=== PATIENT | male | born 1980 | race Caucasian/White ===

== ENCOUNTER → 2016-11-12 | Outpatient (CLI) | payer BC ==
--- NOTE | 2016-11-12 11:04 | XR ---
EXAMINATION TYPE: XR chest 2V DATE OF EXAM: 11/12/2016 10:33 AM COMPARISON: 10/24/2016 HISTORY: Cardiac dysrhythmia FINDINGS: The lungs are clear and there is no pneumothorax, pleural effusion, or focal pneumonia. Heart size mildly prominent. IMPRESSION: 1. No acute process.
[2016-11-12 11:23] LABS: Anion Gap 13 mmol/L; Blood Urea Nitrogen 15 mg/dL (9-20); Calcium 9.7 mg/dL (8.4-10.2); Carbon Dioxide 30 mmol/L (22-30); Chloride 99 mmol/L (98-107); Glucose 96 mg/dL (74-99); Non-African American GFR(MDRD) >60 (>60 ml/min/1.73 sqM); Potassium 5.2 mmol/L (3.5-5.1); Sodium 142 mmol/L (137-145)
[2016-11-12 11:24] LABS: CHCM 34.1; HCT 55.7 % (39.0-53.0); HDW 2.53; HGB 18.5 gm/dL (13.0-17.5); MCH 31.4 pg (25.0-35.0); MCHC 33.3 g/dL (31.0-37.0); MCV 94.2 fL (80.0-100.0); Mean Platelet Volume 7.8; RBC 5.91 m/uL (4.30-5.90); RDW 13.1 % (11.5-15.5); WBC 5.9 k/uL (3.8-10.6)
== END | disposition home or self-care (01) ==
LOC: RADXRMAIN 10:15
PROVIDERS: ATTEND Internal Medicine Interventional Cardiology
DX: I50.9 Heart failure, unspecified (principal); I49.9 Cardiac arrhythmia, unspecified
CPT/HCPCS: 36415; 71020; 80048; 85027

== ENCOUNTER 2016-12-03 05:59 | Day surgery (SDC) | payer BC ==
[2016-11-28 11:17] VITALS: BMI 21.7
[2016-12-03] MEDS ORDERED: SODIUM CHLORIDE 0.9% 1,000 ML IV SCH ×2 (06:15→07:15)
[2016-12-03 06:33] VITALS: TEMP 97.9
[2016-12-03] MEDS ORDERED: IV FLUID CONTINUATION 1,000 ML IV ONE ×2 (06:58→08:15)
[2016-12-03] MEDS ORDERED: PROPOFOL 10 MG/ML 20 ML VIAL IV ONE (07:04)
[2016-12-03] MEDS ORDERED: SODIUM CHLORIDE 0.9% 1,000 ML BAG ONE (07:04)
[2016-12-03 10:10] VITALS: PULSE 60
[2016-12-03 10:28] VITALS: BP 106/64; RESP 20
--- NOTE | 2016-12-03 17:26 | PCN ---
DATE OF PROCEDURE: 12/03/2016 PROCEDURE: Electrical cardioversion. INDICATION: Persistent atrial fibrillation with congestive heart failure. CLINICAL INFORMATION: Arnol Becerra was recently diagnosed to have congestive heart failure with atrial fibrillation. Etiology of his CHF is unclear. Clinical picture looks like that of a nonischemic cardiomyopathy. However, his heart failure was stabilized, rate control was achieved, and he still remained in atrial fibrillation. Therefore he was brought in for the procedure electively. He has been on Eliquis, digoxin, losartan, metoprolol and Aldactone. PROCEDURE NOTE: Under the influence of [id number] intravenous anesthetic agent with the attendance of the anesthesiologist, Dr. Donaldson, a single 200-joule shock was delivered with anterior and posterior patches. Patient converted to sinus rhythm. He remained hemodynamically stable and neurologically intact. This was a successful electrical cardioversion. Results were discussed with the patient and his . He will be discharged at noontime after he has had a meal and has been ambulated. I will see him in the office in about a week. Results were discussed with the patient and his .
--- NOTE | 2016-12-04 10:41 | ECHOF ---
Referral Reason:LVEF MEASUREMENTS -------- HEIGHT: 182.9 cm WEIGHT: 72.6 kg BP: 106/64 RVIDd: 2.7 cm (< 3.3) IVSd: 1.0 cm (0.6 - 1.1) LVIDd: 6.1 cm (3.9 - 5.3) LVPWd: 0.9 cm (0.6 - 1.1) IVSs: 1.0 cm LVIDs: 5.6 cm LVPWs: 1.4 cm LA Diam: 4.0 cm (2.7 - 3.8) LAESV Index (A-L): 43.82 ml/m Ao Diam: 3.1 cm (2.0 - 3.7) AV Cusp: 2.5 cm (1.5 - 2.6) MV EXCURSION: 22.473 mm (> 18.000) MV EF SLOPE: 124 mm/s (70 - 150) EPSS: 1.9 cm FINDINGS -------- Sinus rhythm. This was a technically good study. The left ventricle is mildly dilated. Left ventricular wall thickness is normal. Overall left ventricular systolic function is severely impaired with, an EF between 20 - 25 %. The right ventricle is normal in size and function. LA is severely dilated >40 ml/m2 The right atrium is normal in size. The aortic valve is trileaflet and appears structurally normal. Mild mitral regurgitation is present. Trace tricuspid regurgitation present. Trace/mild (physiologic) pulmonic regurgitation. The aortic root size is normal. Normal inferior vena cava with normal inspiratory collapse consistent with estimated right atrial pressure of 5 mmHg. There is no pericardial effusion. CONCLUSIONS -------- 1. Sinus rhythm. 2. Mild mitral regurgitation is present. 3. Trace tricuspid regurgitation present. 4. Trace/mild (physiologic) pulmonic regurgitation. 5. The aortic root size is normal. 6. Normal inferior vena cava with normal inspiratory collapse consistent with estimated right atrial pressure of 5 mmHg. 7. There is no pericardial effusion. 8. This was a technically good study. 9. The left ventricle is mildly dilated. 10. Left ventricular wall thickness is normal. 11. Overall left ventricular systolic function is severely impaired with, an EF between 20 - 25 %. 12. The right ventricle is normal in size and function. 13. LA is severely dilated >40 ml/m2 14. The right atrium is normal in size. 15. The aortic valve is trileaflet and appears structurally normal. SOFTWARE APPLICATIONS ENGINEER: Gaby Snyder RDCS
== END 2016-12-03 11:34 | disposition home or self-care (01) ==
LOC: CATHCVL 05:59
PROVIDERS: ATTEND Internal Medicine Interventional Cardiology
DX: I48.1 Persistent atrial fibrillation (principal); I42.9 Cardiomyopathy, unspecified; I50.9 Heart failure, unspecified; I10 Essential (primary) hypertension; K21.9 Gastro-esophageal reflux disease without esophagitis; Z79.82 Long term (current) use of aspirin; Z79.899 Other long term (current) drug therapy
CPT/HCPCS: 93306; 93005; 92960; 84443; J2704

== ENCOUNTER 2016-12-16 09:25 | Day surgery (SDC) | payer BC ==
[2016-12-13 08:49] VITALS: BMI 21.7
[~2016-12-16 09:25] MED LIST: ALPRAZolam 0.25 MG TAB PO PRN; ASPIRIN 325 MG TAB PO ONE; SODIUM CHLORIDE 0.9% 1,000 ML in EMPTY BAG 1 BAG IV ONE
[2016-12-16 09:47] VITALS: RESP 18
[2016-12-16 10:06] LABS: Basophils % (A) 1 %; CH 32.6; CHCM 36.1; Eosinophils # (A) 0.1 k/uL (0-0.7); Eosinophils % (A) 3 %; HCT 44.2 % (39.0-53.0); HDW 2.81; HGB 15.3 gm/dL (13.0-17.5); Luc # (Auto) 0.19; Luc % (Auto) 4; Lymphocytes # (A) 1.3 k/uL (1.0-4.8); Lymphocytes % (A) 25 %; MCH 31.4 pg (25.0-35.0); MCHC 34.7 g/dL (31.0-37.0); MCV 90.6 fL (80.0-100.0); Monocytes # (A) 0.3 k/uL (0-1.0); Monocytes % (A) 7 %; Neutrophils # (A) 3.1 k/uL (1.3-7.7); Neutrophils % (A) 61 %; RBC 4.88 m/uL (4.30-5.90); RDW 13.1 % (11.5-15.5); WBC (Perox) 5.23
[2016-12-16] MEDS ORDERED: LIDOCAINE 2% INJ 20 MG/ML (20 ML MDV) ONE (10:21)
[2016-12-16] MEDS ORDERED: SODIUM CHLORIDE 0.9% (PF) 10 ML VIAL ONE (10:23)
[2016-12-16] MEDS ORDERED: VERAPAMIL 2.5 MG/ML 2 ML AMP ONE (10:23)
[2016-12-16] MEDS ORDERED: MIDAZOLAM 2 MG/2 ML VIAL ONE (11:00)
[2016-12-16] MEDS ORDERED: HEPARIN SODIUM 1,000 UNIT/ML VIAL ONE (11:01)
[2016-12-16] MEDS ORDERED: diphenhydrAMINE 50 MG/ML 1 ML VIAL ONE (11:01)
[2016-12-16] MEDS: MIDAZOLAM 2 MG/2 ML VIAL IVP ONE ×2 (11:08→11:11)
[2016-12-16] MEDS ORDERED: diphenhydrAMINE 50 MG/ML 1 ML VIAL IVP ONE (11:08)
[2016-12-16] MEDS ORDERED: LIDOCAINE 2% INJ 20 MG/ML SQ ONE (11:11)
[2016-12-16 11:12] LABS: Anion Gap 10 mmol/L; Blood Urea Nitrogen 13 mg/dL (9-20); Calcium 9.1 mg/dL (8.4-10.2); Carbon Dioxide 29 mmol/L (22-30); Chloride 103 mmol/L (98-107); Glucose 90 mg/dL (74-99); Non-African American GFR(MDRD) >60 (>60 ml/min/1.73 sqM); Potassium 4.1 mmol/L (3.5-5.1); Sodium 142 mmol/L (137-145)
[2016-12-16] MEDS ORDERED: HEPARIN SODIUM 1,000 UNIT/ML VIAL IV ONE (11:18)
[2016-12-16] MEDS: VERAPAMIL SYRINGE (5 MG/10 ML) INTRAARTER ONE ×2 (11:18→11:37)
[2016-12-16] MEDS ORDERED: IODIXANOL 320 MG/ML 100 ML INTRAARTER ONE (11:34)
[2016-12-16] MEDS ORDERED: RX INFO: IV CONTRAST WAS GIVEN 1 EACH MISC MISCELLANE PRN (11:43)
[2016-12-16] MEDS ORDERED: SODIUM CHLORIDE 0.9% 1,000 ML IV SCH (11:45)
[2016-12-16] MEDS ORDERED: HYDROmorphone 1 MG/ML 1 ML SYRINGE IVP STA ×2 (14:00)
[2016-12-16] MEDS ORDERED: HYDROmorphone 1 MG/ML 1 ML SYRINGE ONE (14:01)
[2016-12-16 16:51] VITALS: BP 122/64; PULSE 74; TEMP 97.8
--- NOTE | 2016-12-16 22:40 | CC ---
DATE OF SERVICE: 12/16/2016 PROCEDURE: Left heart catheterization, coronary angiography and left ventriculography. PERFORMED BY: Dr. Amarilys Delgado CLINICAL INFORMATION: Mr. Arnol Becerra is a 36-year-old gentleman with a recent diagnosis of atrial fibrillation and cardiomyopathy of unclear etiology. He was treated with anticoagulation and after he had failure of medications, then he underwent electrical cardioversion. He is now in sinus rhythm. He was advised coronary angiography to rule out any obstructive CAD. PROCEDURE NOTE: Under local anesthesia and strict aseptic precautions, a 6 Sami introducer was placed in the right radial artery. I used a micropuncture technique to gain access. I initially tried an Ultimate 1 catheter but eventually used 3.5 curved left and right Zeenat catheters and performed coronary angiography. A pigtail catheter was used to perform LV gram. The sheath was taken out and TR band applied as per protocol with good saturation in the fingers of the right hand of about 100%. Results were discussed with the patient. He was sent to the room in stable condition. There was no obstructive CAD, a right-dominant system and a global decrease in contractility; ejection fraction of 25%. CARDIAC CATHETERIZATION FINDINGS: Left ventricular end-diastolic pressure was about 14 mmHg, and there was no gradient across the aortic valve. CORONARY ANGIOGRAPHIC FINDINGS LEFT MAIN CORONARY ARTERY: A short, patent, disease-free vessel that bifurcates into LAD and circumflex. LEFT ANTERIOR DESCENDING CORONARY ARTERY: A good-caliber vessel; gives off a large diagonal branch in the mid portion; several small septal branches; runs all the way to the apex and curves over the apex to supply the inferoapical ( ) critical. There is no obstructive CAD involving the LAD system. LEFT POSTERIOR CIRCUMFLEX CORONARY ARTERY: technically a non-dominant vessel; gives off a good-sized obtuse marginal and before that gives a left atrial circumflex and then after the obtuse marginal, the groove branch is free of significant disease and comes off distally as a small posterolateral branch. Circumflex is non-dominant, disease-free system with a good-sized obtuse marginal branch. RIGHT CORONARY ARTERY: Technically a dominant vessel; gives off a high conus branch that distally comes off the PDA branch. PLV is somewhat smaller. There is no significant obstructive disease. Minor irregularities are noted. Dominant RCA has small distal branches. PDA is free of significant disease. PLV is smaller. There is a small conus branch proximally. LEFT VENTRICULOGRAM: This was performed in 30-degree GIRALDO projection and revealed a left ventricle which is dilated with a global decrease in contractility. Estimated ejection fraction of 25% without mitral regurgitation. FINAL IMPRESSION: This patient has non-ischemic cardiomyopathy. LV and diastolic systolic pressure is 14. There is no gradient across the aortic valve. He has a right-dominant system. He has no obstructive coronary artery disease. RECOMMENDATIONS: I am recommending that we continue medical therapy, and hopefully his LV function will improve with time. If not, he will require a single-chamber ICD down the road. I discussed the findings with the patient and his and other family members, and I expect he will be discharged later on today if he remains stable.
--- NOTE | 2016-12-16 22:41 | LTR ---
December 16, 2016 RE: MariamArnol Dear Dr. Weir, Thank you for the opportunity to participate in the care of Mr. Arnol Becerra. This gentleman underwent left heart catheterization today. He has no significant obstructive CAD. His feeling pressures are acceptable. He has a global decrease in contractility with a dilated ventricular ejection fraction of about 25% by visual inspection. For now we will pursue medical therapy, but down the road he may require ICD if his LV function does not improve. Thank you for your referral. Please call with questions. Sincerely, JACINTO COLÓN MD
--- NOTE | 2016-12-17 09:36 | ECHOF ---
Referral Reason:Non ischemic Cardiomyopathy MEASUREMENTS -------- HEIGHT: 180.3 cm WEIGHT: 72.6 kg BP: 123/81 IVSd: 0.9 cm (0.6 - 1.1) LVIDd: 5.8 cm (3.9 - 5.3) LVPWd: 1.0 cm (0.6 - 1.1) IVSs: 0.8 cm LVIDs: 4.8 cm LVPWs: 1.3 cm Ao Diam: 3.2 cm (2.0 - 3.7) AV Cusp: 2.0 cm (1.5 - 2.6) LA Diam: 2.8 cm (2.7 - 3.8) MV EXCURSION: 19.089 mm (> 18.000) MV EF SLOPE: 115 mm/s (70 - 150) EPSS: 2.0 cm MV E Tico: 0.66 m/s MV DecT: 253 ms MV A Tico: 0.52 m/s MV E/A Ratio: 1.27 RAP: 5.00 mmHg RVSP: 12.42 mmHg FINDINGS -------- Sinus rhythm. This was a technically good study. The left ventricle is mildly dilated. Left ventricular wall thickness is normal. There is severe global hypokinesis of LV . Overall left ventricular systolic function is moderate-severely impaired with, an EF between 30 - 35 %. The right ventricle is normal in size and function. The left atrium is normal in size. The right atrium is normal in size. The aortic valve is trileaflet, and appears structurally normal. No aortic stenosis or regurgitation. The mitral valve leaflets are mildly thickened. Mild mitral regurgitation is present. Mild tricuspid regurgitation present. The right ventricular systolic pressure, as measured by Doppler, is 12.42mmHg. Pulmonic valve appears structurally normal. The aortic root, ascending aorta and aortic arch are normal. The pericardium is normal. CONCLUSIONS -------- 1. Sinus rhythm. 2. The aortic valve is trileaflet, and appears structurally normal. No aortic stenosis or regurgitation. 3. The mitral valve leaflets are mildly thickened. 4. Mild mitral regurgitation is present. 5. Mild tricuspid regurgitation present. 6. The right ventricular systolic pressure, as measured by Doppler, is 12.42mmHg. 7. Pulmonic valve appears structurally normal. 8. The aortic root, ascending aorta and aortic arch are normal. 9. The pericardium is normal. 10. This was a technically good study. 11. The left ventricle is mildly dilated. 12. Left ventricular wall thickness is normal. 13. There is severe global hypokinesis of LV . 14. Overall left ventricular systolic function is moderate-severely impaired with, an EF between 30 - 35 %. 15. The right ventricle is normal in size and function. 16. The left atrium is normal in size. 17. The right atrium is normal in size. DRESSING ROOM PORTER: Judith Ferrer RDCS
== END 2016-12-16 17:30 | disposition home or self-care (01) ==
LOC: CATHCVL 09:25
PROVIDERS: ATTEND Internal Medicine Interventional Cardiology
DX: I48.91 Unspecified atrial fibrillation (principal); I42.0 Dilated cardiomyopathy; I11.0 Hypertensive heart disease with heart failure; I50.9 Heart failure, unspecified; Z79.01 Long term (current) use of anticoagulants; Z79.899 Other long term (current) drug therapy
CPT/HCPCS: 93306; 93458; 80048; 85025; C1769; C1894; J2001; J2250; J1200; Q9967; J1644

== ENCOUNTER 2018-01-08 16:44 | Emergency (ER) | payer BC ==
[2018-01-08 17:02] VITALS: BP 135/84; PULSE 79; RESP 18; TEMP 97.5
[2018-01-08] MEDS ORDERED: KETOROLAC 30 MG/ML 1 ML VIAL IM STA (17:21)
--- NOTE | 2018-01-08 17:23 | ED ---
Neck Injury/Pain HPI - General Chief Complaint: Neck Pain/Injury Stated Complaint: Neck Pain Time Seen by Provider: 01/08/18 17:08 Mode of arrival: ambulatory Limitations: no limitations - History of Present Illness Initial Comments: 37-year-old male patient presents to the emergency department today for evaluation of left-sided neck pain that radiates into the left shoulder. Patient states this started Friday night after he was putting in a metal ceiling. He states that during that time he was looking up at the ceiling and holding a heavy screw gun in his right hand. He states that he has increased pain with rotation of the head. He states that occasionally the area while "locked up" on him and make it very difficult for him to move around. He states he has been applying a central oils and performing massage which does seem to help somewhat however does not completely relieve his symptoms. He states he is having some minor tingling in his left hand at times. He denies any falls or known injury to the neck. He denies any chest pain, shortness of breath, nausea, vomiting, or sweats. Patient denies any headache, neck pain, back pain, dizziness, weakness, abdominal pain, or difficulties with bowel movements or urination. - Related Data Home Medications Medication Instructions Recorded Confirmed Omeprazole [PriLOSEC] 20 mg PO DAILY 01/09/16 01/08/18 Previous Rx's Medication Instructions Recorded Acetaminophen-Codeine 300-30mg 1 tab PO Q6H PRN #15 tablet 01/08/18 [Tylenol #3] Cyclobenzaprine [Flexeril] 10 mg PO TID #15 tab 01/08/18 Ibuprofen [Motrin] 600 mg PO Q8HR PRN #30 tab 01/08/18 Allergies Allergy/AdvReac Type Severity Reaction Status Date / Time No Known Allergies Allergy Verified 01/08/18 17:16 Review of Systems ROS Statement: Those systems with pertinent positive or pertinent negative responses have been documented in the HPI. ROS Other: All systems not noted in ROS Statement are negative. Past Medical History Past Medical History: GERD/Reflux, Myocardial Infarction ([place]), Pneumonia Additional Past Medical History / Comment(s): Pneumonia, bronchitits within the last year. Last Myocardial Infarction Date:: 10/2016 History of Any Multi-Drug Resistant Organisms: None Reported Past Surgical History: Hernia Repair Additional Past Surgical History / Comment(s): EGD Past Anesthesia/Blood Transfusion Reactions: No Reported Reaction Past Psychological History: No Psychological Hx Reported Smoking Status: Never smoker Past Alcohol Use History: Occasional Past Drug Use History: None Reported - Past Family History Father Family Medical History: Coronary Artery Disease (CAD), Myocardial Infarction ([place] ) Mother Family Medical History: No Reported History Additional Family Medical History / Comment(s): Father with known history of coronary artery disease General Exam Limitations: no limitations General appearance: alert, in no apparent distress, other (Physical well- developed, well-nourished adult male patient in no acute distress. Vital signs upon presentation are temperature 97.5F, pulse 79, respirations 18, blood pressure 135/84, pulse ox 97% on room air.) Eye exam: Present: normal appearance, PERRL, EOMI. Absent: scleral icterus, conjunctival injection, periorbital swelling ENT exam: Present: normal exam, normal oropharynx, mucous membranes moist Neck exam: Present: normal inspection, full ROM (Full range of motion present however patient reports increased pain with rotation), other (She has muscle spasm to the left upper trapezius muscle on the left side). Absent: tenderness , meningismus, lymphadenopathy Respiratory exam: Present: normal lung sounds bilaterally. Absent: respiratory distress, wheezes, rales, rhonchi, stridor Cardiovascular Exam: Present: regular rate, normal rhythm, normal heart sounds. Absent: systolic murmur, diastolic murmur, rubs, gallop, clicks GI/Abdominal exam: Present: soft, normal bowel sounds. Absent: distended, tenderness, guarding, rebound, rigid Neurological exam: Present: alert, oriented X3, CN II-XII intact, other ( Strength in all 4 extremities is 5/5.) Psychiatric exam: Present: normal affect, normal mood Skin exam: Present: warm, dry, intact, normal color. Absent: rash Course Vital Signs 01/08/18 17:00 Temperature 97.5 F L Pulse Rate 79 Respiratory 18 Rate Blood Pressure 135/84 O2 Sat by Pulse 97 Oximetry Medical Decision Making - Medical Decision Making 37-year-old male patient presents to the emergency department today with complaints of left-sided neck pain that radiates into her shoulder. Physical examination does reveal muscle spasm to the left upper trapezius muscle. Patient had good strength in his upper extremities. We did discuss management of muscle spasm including heat and massage. He will be given prescription for Flexeril, ibuprofen, and Tylenol 3. He is instructed to follow-up with his primary care physician and orthopedics of his symptoms not improve over the next few days. He is instructed to return here immediately for any new, worsening, or concerning symptoms. He verbalizes understanding and agrees with this plan. Disposition Clinical Impression: Muscle spasm Disposition: HOME SELF-CARE Condition: Good Instructions: Muscle Spasm (ED) Additional Instructions: Apply warm moist heat to the neck 20 minutes at a time at least 4 times per day. Continue applying topical pain relief measures and performing massage. Take medications as directed. Follow-up with her primary care physician or orthopedics as soon as possible. Return here immediately for any new, worsening , or concerning symptoms. Prescriptions: Acetaminophen-Codeine 300-30mg [Tylenol #3] 1 tab PO Q6H PRN #15 tablet PRN Reason: Pain Cyclobenzaprine [Flexeril] 10 mg PO TID #15 tab Ibuprofen [Motrin] 600 mg PO Q8HR PRN #30 tab PRN Reason: Pain Referrals: Zara Weir MD [Primary Care Provider] - 1-2 days Genny Castellon DO [Doctor of Osteopathic Medicine] - 1-2 days Time of Disposition: 17:23
== END 2018-01-08 17:36 | disposition home or self-care (01) ==
LOC: EC 16:44
DX: M62.838 Other muscle spasm (principal); R20.2 Paresthesia of skin; K21.9 Gastro-esophageal reflux disease without esophagitis; Z79.899 Other long term (current) drug therapy
CPT/HCPCS: 99283; 96372; J1885

== ENCOUNTER 2018-01-10 19:37 | Emergency (ER) | payer BC ==
[2018-01-10 19:41] VITALS: BP 116/77; PULSE 95; RESP 20; TEMP 97.5
[2018-01-10] MEDS ORDERED: PROPARACAINE 0.5% OPHTH DROPS 15 ML BTL RIGHT EYE STA (19:55)
[2018-01-10] MEDS ORDERED: TOBRAMYCIN 0.3% OPHTH DROPS 5 ML BTL RIGHT EYE STA (20:13)
--- NOTE | 2018-01-10 20:19 | ED ---
Eye Problem HPI - General Chief complaint: Eye Problems Stated complaint: FB eye Time Seen by Provider: 01/10/18 19:48 Source: patient, RN notes reviewed Mode of arrival: ambulatory Limitations: no limitations - History of Present Illness Initial comments: 37-year-old male presents emergency Department chief complaint of foreign body right eye. Patient states she's grinding some metal and was wearing safety glasses yesterday states that he feels that something in his eye. He tried flushing no relief. Denies any blurred vision. Patient states his eye has been tearing at this time. He has had this happen in the past. - Related Data Home Medications Medication Instructions Recorded Confirmed Omeprazole [PriLOSEC] 20 mg PO DAILY 01/09/16 01/10/18 Previous Rx's Medication Instructions Recorded Acetaminophen-Codeine 300-30mg 1 tab PO Q6H PRN #15 tablet 01/08/18 [Tylenol #3] Cyclobenzaprine [Flexeril] 10 mg PO TID #15 tab 01/08/18 Ibuprofen [Motrin] 600 mg PO Q8HR PRN #30 tab 01/08/18 Allergies Allergy/AdvReac Type Severity Reaction Status Date / Time No Known Allergies Allergy Verified 01/10/18 19:41 Review of Systems ROS Statement: Those systems with pertinent positive or pertinent negative responses have been documented in the HPI. ROS Other: All systems not noted in ROS Statement are negative. Past Medical History Past Medical History: GERD/Reflux, Myocardial Infarction ([place]), Pneumonia Additional Past Medical History / Comment(s): Pneumonia, bronchitits within the last year. Last Myocardial Infarction Date:: 10/2016 History of Any Multi-Drug Resistant Organisms: None Reported Past Surgical History: Hernia Repair Additional Past Surgical History / Comment(s): EGD Past Anesthesia/Blood Transfusion Reactions: No Reported Reaction Past Psychological History: No Psychological Hx Reported Smoking Status: Never smoker Past Alcohol Use History: Occasional Past Drug Use History: None Reported - Past Family History Father Family Medical History: Coronary Artery Disease (CAD), Myocardial Infarction ([place] ) Mother Family Medical History: No Reported History Additional Family Medical History / Comment(s): Father with known history of coronary artery disease General Exam Limitations: no limitations General appearance: alert, in no apparent distress Head exam: Present: atraumatic, normocephalic, normal inspection Eye exam: Present: PERRL, EOMI. Absent: normal appearance (Foreign body noted in the 2 o'clock position), scleral icterus, conjunctival injection, periorbital swelling Pupils: Present: other (Uptake of Flourescein dye at foreign body) ENT exam: Present: normal exam, normal oropharynx, mucous membranes moist, TM's normal bilaterally, normal external ear exam Neck exam: Present: normal inspection, full ROM. Absent: tenderness, meningismus, lymphadenopathy Respiratory exam: Present: normal lung sounds bilaterally. Absent: respiratory distress, wheezes, rales, rhonchi, stridor Cardiovascular Exam: Present: regular rate, normal rhythm, normal heart sounds. Absent: systolic murmur, diastolic murmur, rubs, gallop, clicks Neurological exam: Present: alert Skin exam: Present: warm, dry, intact, normal color. Absent: rash Course Vital Signs 01/10/18 19:39 Temperature 97.5 F L Pulse Rate 95 Respiratory 20 Rate Blood Pressure 116/77 O2 Sat by Pulse 97 Oximetry Procedures - Procedures Initial comment: Foreign body right eye 2 drops of proparacaine were used to anesthetize I patient complete relief of his symptoms. Unable to remove with sterile Q-tip, elderly Gabonese was used to remove foreign body there is a slight rust ring left after unable to remove patient will follow-up with ophthalmology Medical Decision Making - Medical Decision Making 37-year-old male presented for foreign body. Patient's foreign body was removed small rust ring noted patient follow-up with on-call ophthalmology Dr. Arias return parameters were discussed. Disposition Clinical Impression: Corneal foreign body Disposition: HOME SELF-CARE Condition: Stable Instructions: Eye Foreign Body (ED) Additional Instructions: Please return to the Emergency Department if symptoms worsen or any other concerns. Referrals: Zara Weir MD [Primary Care Provider] - 1-2 days Priyank Arias MD [STAFF PHYSICIAN] - 1-2 days Time of Disposition: 20:19
== END 2018-01-10 20:27 | disposition home or self-care (01) ==
LOC: EC 19:37
DX: T15.01XA Foreign body in cornea, right eye, initial encounter (principal); K21.9 Gastro-esophageal reflux disease without esophagitis; Z79.899 Other long term (current) drug therapy
CPT/HCPCS: 65220; 99283

== ENCOUNTER 2021-05-01 | Inpatient (IN) | payer BC | END 2021-05-06 10:51 | disposition home or self-care (01) | DRG 308 | PROVIDERS: ADMIT Internal Medicine | CPT/HCPCS: 36415; 71046; 71275; 80048; 80053; 80061; 83735; 83880; 84484; 85025; 85379; 85610; 85730; 87635; 93005; 93306; 96374; 99285 ==

== ENCOUNTER → 2021-10-31 | Outpatient (CLI) | payer BC ==
[2021-10-31 19:53] LABS: T4, Free (Free Thyroxine) 1.28 ng/dL (0.800-1.800)
== END | disposition home or self-care (01) ==
LOC: LABWHC1 10:42
PROVIDERS: ATTEND Internal Medicine Interventional Cardiology
DX: E03.9 Hypothyroidism, unspecified (principal)
CPT/HCPCS: 36415; 84439; 84443

== ENCOUNTER 2024-11-05 06:12 | Day surgery (SDC) | payer BC ==
[~2024-11-05 06:12] MED LIST changes: -ALPRAZolam 0.25 MG TAB PO PRN; -ASPIRIN 325 MG TAB PO ONE; +SODIUM CHLORIDE 0.9% 1,000 ML IV SCH; -SODIUM CHLORIDE 0.9% 1,000 ML in EMPTY BAG 1 BAG IV ONE
[2024-11-05 07:03] VITALS: TEMP 97.6
[2024-11-05] MEDS: SODIUM CHLORIDE 0.9% 500 ML 500 ML IV ONE (07:03)
[2024-11-05] MEDS ORDERED: PROPOFOL 10 MG/ML 20 ML VIAL IV ONE (07:20)
[2024-11-05] MEDS ORDERED: LIDOCAINE 1% INJ 10MG/ML (20 ML MDV) ONE (07:20)
--- NOTE | 2024-11-05 08:36 | CE ---
CARDIAC ELECTROPHYSIOLOGY REPORT PROCEDURES PERFORMED: Electrical cardioversion. INDICATION: Persistent atrial fibrillation with cardiomyopathy. CLINICAL INFORMATION: Mr. Becerra is a 44-year-old gentleman with a history of cardiomyopathy and atrial fibrillation. Atrial fibrillation seems to bring his LV function down from 50% down to 35% to 40% range. He developed this about 3 weeks ago. We gave him amiodarone 200 mg b.i.d., but he did not tolerate, therefore, cut the dose down to 200 mg daily. He was always well anticoagulated with Eliquis 5 mg b.i.d., was brought in for the procedure electively after making efforts with pharmacological cardioversion, which was unsuccessful. He was brought in for electrical cardioversion after due discussion regarding risks, benefits, and options. PROCEDURE NOTE: Under the influence of [id number] intravenous anesthetic agent with the attendance of the anesthesiologist, a single shock of 120 joules was delivered with anterior and posterior patches. The patient converted to sinus rhythm, remained hemodynamically stable, and neurologically intact. This was a successful electrical cardioversion. MMODL / IJN: [id number] /
[2024-11-05 08:37] VITALS: RESP 18
[2024-11-05 08:50] VITALS: BP 104/73; PULSE 74
== END 2024-11-05 09:08 ==
LOC: OR 06:12
PROVIDERS: ATTEND Internal Medicine Interventional Cardiology
DX: I48.19 Other persistent atrial fibrillation (principal); I42.8 Other cardiomyopathies; I11.0 Hypertensive heart disease with heart failure; I50.9 Heart failure, unspecified; I25.2 Old myocardial infarction; Z79.01 Long term (current) use of anticoagulants; Z79.899 Other long term (current) drug therapy; Z98.890 Other specified postprocedural states
CPT/HCPCS: 92960; J2003; J2704